=== PATIENT | female | born 1955 | race Caucasian/White ===

== ENCOUNTER → 2016-09-04 | Outpatient (REF) | payer OTHER ==
[~2016-09-04] MED LIST: /WARF5TA; COUM10TA; LOVENOX; PREMAR1.25 PO; PREMARI0.9 PO; TYLENOL #3; [UNRECOGNIZED DRUG - CODE] PO
[2016-09-04 16:01] LABS: MEAN CORPUSCULAR HGB CONC 32.6 g/dl (32.0-36.5); MEAN CORPUSCULAR VOLUME 85.9 fl (80.0-96.0); RED CELL DISTRIBUTION WIDTH 13.3 % (11.5-14.5); WHITE BLOOD COUNT 7.2 K/mm3 (4.0-10.0)
[2016-09-04 16:37] LABS: ALBUMIN 3.9 GM/DL (3.2-5.2); ALBUMIN/GLOBULIN RATIO 0.98 (1.00-1.93); BILIRUBIN,TOTAL 0.4 MG/DL (0.2-1.0); CALCIUM LEVEL 9.4 MG/DL (8.8-10.2); CREATININE FOR GFR 1.18 MG/DL (0.55-1.02); GLOMERULAR FILTRATION RATE 49.4 (>45); POTASSIUM SERUM 4.3 MEQ/L (3.5-5.1); TOTAL PROTEIN 7.9 GM/DL (6.4-8.2)
== END ==
LOC: M SFHCPLAZ 13:54
PROVIDERS: ATTEND Nurse Practitioner Adult Health
DX: Z00.00 Encounter for general adult medical examination without abnormal findings (principal); R73.02 Impaired glucose tolerance (oral); E55.9 Vitamin D deficiency, unspecified; E53.8 Deficiency of other specified B group vitamins

== ENCOUNTER → 2016-12-31 | Outpatient (CLI) | payer BC | LOC: M WUC 09:25 | PROVIDERS: ATTEND Nurse Practitioner Adult Health | DX: E03.9 Hypothyroidism, unspecified (principal) ==

== ENCOUNTER → 2017-03-14 | Outpatient (REF) | payer BC | LOC: M SFHCWAGY 15:13 | PROVIDERS: ATTEND Nurse Practitioner Family | DX: Z12.72 Encounter for screening for malignant neoplasm of vagina (principal); Z12.4 Encounter for screening for malignant neoplasm of cervix; Z12.31 Encounter for screening mammogram for malignant neoplasm of breast ==

== ENCOUNTER → 2017-03-14 | Outpatient (REF) | payer BC | LOC: M SFHCWAGY 15:13 | PROVIDERS: ATTEND Nurse Practitioner Family | DX: Z12.4 Encounter for screening for malignant neoplasm of cervix (principal); Z12.31 Encounter for screening mammogram for malignant neoplasm of breast ==

== ENCOUNTER → 2017-03-14 | Outpatient (CLI) | payer BC ==
--- NOTE | 2017-03-14 12:14 | REPMRS ---
Patient History The patient states she had a clinical breast exam in 02/2017. Patient is nulliparous. Family history of pancreatic cancer in mother and breast cancer in maternal aunt at age 50 or over. Digital Woman Screen Mammo: March 14, 2017 - Exam #: [id number] Bilateral CC and MLO view(s) were taken. Technologist: Maddie Villanueva, Technologist Prior study comparison: March 13, 2016, digital woman screen mammo performed at [facility]. February 28, 2015, digital woman screen mammo performed at [facility]. May 15, 2013, digital woman screen mammo performed at [facility] to [facility]. FINDINGS: There are scattered fibroglandular densities. There has been no change in the appearance of the mammogram from the prior studies. There is a mild amount of scattered fibroglandular density which is fairly symmetric. There is no interval development of dominant mass, architectural distortion, or clustered microcalcification suggestive of malignancy. ASSESSMENT: BI-RADS/ACR category 1 mammogram. Negative. Recommendation Routine screening mammogram in 1 year (for women over age 40). This mammogram was interpreted with the aid of an FDA-approved computer-aided dectection system. Electronically Signed By: Issa Patel MD 03/14/17 [id number]
== END ==
LOC: M WHC 10:52
PROVIDERS: ATTEND Nurse Practitioner Family
DX: Z12.31 Encounter for screening mammogram for malignant neoplasm of breast (principal)

== ENCOUNTER 2017-10-11 10:35 | Day surgery (SDC) | payer BC ==
[2017-10-11] MEDS: NS 1,000 ML IV (10:45)
[2017-10-11] MEDS ORDERED: LIDOCAINE 2% INJ 100 MG/5 ML SDV (FOR ANES.) As Ordered (11:19)
[2017-10-11] MEDS ORDERED: PROPOFOL 200 MG/20 ML VIAL As Ordered ×2 (11:20→12:15)
== END 2017-10-11 13:05 | disposition home or self-care (01) ==
LOC: M OPP 10:35
DX: R10.30 Lower abdominal pain, unspecified (principal); R19.4 Change in bowel habit; K58.0 Irritable bowel syndrome with diarrhea; K64.0 First degree hemorrhoids; E03.9 Hypothyroidism, unspecified; E78.5 Hyperlipidemia, unspecified; R73.03 Prediabetes; D64.9 Anemia, unspecified; Z86.718 Personal history of other venous thrombosis and embolism; Z88.8 Allergy status to other drugs, medicaments and biological substances; Z91.011 Allergy to milk products; Z79.899 Other long term (current) drug therapy; Z80.8 Family history of malignant neoplasm of other organs or systems; Z80.3 Family history of malignant neoplasm of breast
CPT/HCPCS: 45380

== ENCOUNTER → 2018-02-05 | Outpatient (REF) | payer BC ==
[2018-02-05 12:02] LABS: ESTIMATED AVERAGE GLUCOSE 126 MG/DL (60-110)
== END ==
LOC: M SFHCPLAZ 10:32
DX: R73.02 Impaired glucose tolerance (oral) (principal); I10 Essential (primary) hypertension
CPT/HCPCS: 84443

== ENCOUNTER → 2018-10-20 | Outpatient (REF) | payer BC ==
[~2018-10-20] MED LIST changes: -/WARF5TA; +CHLO125TA PO; +COUM1TAB17; +LEVO88TA3 PO; +PROBCAP14 PO; +VITA200015 PO
[2018-10-20 17:45] LABS: HEMATOCRIT 39.6 % (36.0-47.0); MEAN CORPUSCULAR HEMOGLOBIN 24.1 pg (27.0-33.0); MEAN CORPUSCULAR HGB CONC 30.3 g/dl (32.0-36.5); MEAN CORPUSCULAR VOLUME 79.7 fl (80.0-96.0); PLATELET COUNT, AUTOMATED 266 10^3/uL (150-450); RED BLOOD COUNT 4.97 10^6/uL (4.00-5.40); WHITE BLOOD COUNT 5.9 10^3/uL (4.0-10.0)
[2018-10-20 17:49] LABS: CHOLESTEROL RISK RATIO 2.831 (<5); THYROID STIMULATING HORMONE 0.367 uIU/ML (0.358-3.740)
[2018-10-20 17:50] LABS: TOTAL 25(OH) VITAMIN D 31.5 NG/ML (30.0-100.0)
[2018-10-20 19:33] LABS: HEMOGLOBIN A1c 6.5 %
== END ==
LOC: M SFHCPLAZ 15:49
PROVIDERS: ATTEND Nurse Practitioner Adult Health
DX: R73.02 Impaired glucose tolerance (oral) (principal); E55.9 Vitamin D deficiency, unspecified; E03.9 Hypothyroidism, unspecified; E78.00 Pure hypercholesterolemia, unspecified; D64.9 Anemia, unspecified

== ENCOUNTER → 2018-11-13 | Outpatient (CLI) | payer BC ==
--- NOTE | 2018-11-13 14:22 | REP ---
BILATERAL SCREENING DIGITAL MAMMOGRAM WITH 3D TOMOSYNTHESIS: There are no palpable abnormalities or other breast complaints. The the patient states she had a clinical breast examination 12/02 18. The the patient states she performs self-breast examinations 12 times per year. The Tyrer-Cuzick Score is: 9.4% . Comparison is 05/15/2013 and 03/13/2016. There are scattered areas of fibroglandular density. There is no dominant mass, micro calcific cluster or architectural distortion that would indicate malignancy. There are no additional findings on 3D tomosynthesiss. There is no change from the prior study. Impression: BIRADS/ACR category 1 mammogram. Negative. Recommendation: Routine annual screening mammography. This mammogram was interpreted with the aid of a FDA approved computer-aided detection system. A. Negative mammogram reports should not delay biopsy if a dominant or clinically suspicious mass is present. B. Not all breast cancers are identified by mammography or tomosynthesis. C. Adenosis and dense breasts may obscure an underlying neoplasm. Patient letter M1. Electronically Signed by Jed Odonnell MD 11/13/2018 02:13 P
== END ==
LOC: M WHC 13:08
PROVIDERS: ATTEND Nurse Practitioner Adult Health
DX: Z12.31 Encounter for screening mammogram for malignant neoplasm of breast (principal)

== ENCOUNTER → 2019-03-05 | Outpatient (CLI) | payer MEDICARE ==
[2019-03-05 16:48] LABS: HEMATOCRIT 38.4 % (36.0-47.0); MEAN CORPUSCULAR HEMOGLOBIN 22.8 pg (27.0-33.0); MEAN CORPUSCULAR HGB CONC 28.6 g/dl (32.0-36.5); MEAN CORPUSCULAR VOLUME 79.5 fl (80.0-96.0); PLATELET COUNT, AUTOMATED 254 10^3/uL (150-450); RED BLOOD COUNT 4.83 10^6/uL (4.00-5.40); WHITE BLOOD COUNT 4.2 10^3/uL (4.0-10.0)
[2019-03-05 16:57] LABS: ALBUMIN 3.4 GM/DL (3.2-5.2); BILIRUBIN,TOTAL 0.5 MG/DL (0.2-1.0); CALCIUM LEVEL 8.9 MG/DL (8.8-10.2); CHOLESTEROL RISK RATIO 3.25 (<5); CREATININE FOR GFR 1.06 MG/DL (0.55-1.30); GLOMERULAR FILTRATION RATE 55.4 (>45); POTASSIUM SERUM 4.8 MEQ/L (3.5-5.1); THYROID STIMULATING HORMONE 2.24 uIU/ML (0.358-3.740); TOTAL PROTEIN 6.9 GM/DL (6.4-8.2)
[2019-03-05 17:16] LABS: HEMOGLOBIN A1c 6.2 %
== END ==
LOC: M WUC 12:01
PROVIDERS: ATTEND Nurse Practitioner Adult Health
DX: E74.39 Other disorders of intestinal carbohydrate absorption (principal); E78.2 Mixed hyperlipidemia; D64.9 Anemia, unspecified; E03.9 Hypothyroidism, unspecified

== ENCOUNTER → 2019-09-14 | Outpatient (REF) | payer OTHER ==
[2019-09-14 13:25] LABS: HEMOGLOBIN 13.4 g/dl (12.0-15.5); MEAN CORPUSCULAR HEMOGLOBIN 26.4 pg (27.0-33.0); MEAN CORPUSCULAR HGB CONC 31.2 g/dl (32.0-36.5); MEAN CORPUSCULAR VOLUME 84.8 fl (80.0-96.0); PLATELET COUNT, AUTOMATED 277 10^3/uL (150-450); RED BLOOD COUNT 5.07 10^6/uL (4.00-5.40); WHITE BLOOD COUNT 5.6 10^3/uL (4.0-10.0)
[2019-09-14 13:42] LABS: HEMOGLOBIN A1c 6.3 %
[2019-09-14 14:03] LABS: ALBUMIN 3.6 GM/DL (3.2-5.2); ALT/SGPT 23 U/L (12-78); BILIRUBIN,TOTAL 0.4 MG/DL (0.2-1.0); BLOOD UREA NITROGEN 21 MG/DL (7-18); CALCIUM LEVEL 9.3 MG/DL (8.8-10.2); CARBON DIOXIDE LEVEL 30 MEQ/L (21-32); CHLORIDE LEVEL 104 MEQ/L (98-107); CHOLESTEROL LEVEL 256 MG/DL (<200); CHOLESTEROL RISK RATIO 3.764 (<5); CREATININE FOR GFR 0.94 MG/DL (0.55-1.30); FOLATE 16.9 NG/ML; FREE T4 1.25 NG/DL (0.76-1.46); GLOMERULAR FILTRATION RATE > 60.0 (>45); GLUCOSE, FASTING 113 MG/DL (70-100); HDL CHOLESTEROL 68 MG/DL (>40); LDL CHOLESTEROL 163 MG/DL (<100); NON-HDL-C 188 MG/DL; POTASSIUM SERUM 4.7 MEQ/L (3.5-5.1); SODIUM LEVEL 140 MEQ/L (136-145); THYROID STIMULATING HORMONE 0.494 uIU/ML (0.358-3.740); TOTAL 25(OH) VITAMIN D 38.7 NG/ML (30.0-100.0); TOTAL PROTEIN 7.2 GM/DL (6.4-8.2); TRIGLYCERIDES LEVEL 127 MG/DL (<150); VITAMIN B12 LEVEL 328 PG/ML
== END ==
LOC: M SFHCPLAZ 10:12
PROVIDERS: ATTEND Physician Assistant
DX: E03.9 Hypothyroidism, unspecified (principal); I10 Essential (primary) hypertension; E55.9 Vitamin D deficiency, unspecified; E78.2 Mixed hyperlipidemia; D64.9 Anemia, unspecified; E53.8 Deficiency of other specified B group vitamins; E74.39 Other disorders of intestinal carbohydrate absorption; Z79.899 Other long term (current) drug therapy

== ENCOUNTER → 2020-01-13 | Outpatient (REF) | payer MEDICARE, OTHER ==
[2020-01-13 15:41] LABS: HEMOGLOBIN A1c 5.9 %
[2020-01-13 15:58] LABS: CHOLESTEROL RISK RATIO 3.902 (<5); THYROID STIMULATING HORMONE 0.209 uIU/ML (0.358-3.740)
== END ==
LOC: M SFHCPLAZ 13:45
PROVIDERS: ATTEND Nurse Practitioner Adult Health
DX: R73.02 Impaired glucose tolerance (oral) (principal); E03.9 Hypothyroidism, unspecified; E78.00 Pure hypercholesterolemia, unspecified
CPT/HCPCS: 36415; 80061; 83036; 84443; G0463

== ENCOUNTER → 2020-02-10 | Outpatient (CLI) | payer MEDICARE, OTHER ==
--- NOTE | 2020-02-10 16:26 | REPMRS ---
Patient History The patient states she had a clinical breast exam in 01/2020. Patient is nulliparous. Family history of breast cancer at age 50 or over in maternal aunt, pancreatic cancer at age 50 or over in mother. No Hormone Replacement Therapy 3D TOMOSYNTHESIS WAS PERFORMED. [facility] for [facility] Volpara breast density b. Digital Woman Screen Mammo: February 10, 2020 - Exam #: [id number] Bilateral CC and MLO view(s) were taken. Technologist: Maddie Villanueva, Technologist Prior study comparison: November 13, 2018, bilateral digital woman screen mammo performed at [facility]. March 14, 2017, digital woman screen mammo performed at [facility]. FINDINGS: There are scattered fibroglandular densities. There has been no change in the appearance of the mammogram from the prior studies. There is a mild amount of residual fibroglandular tissue which is fairly symmetric. There is no interval development of dominant mass, architectural distortion, or clustered microcalcification suggestive of malignancy. Assessment: BI-RADS/ACR category 1 mammogram. Negative Mammogram. Recommendation Routine screening mammogram in 1 year (for women over age 40). This mammogram was interpreted with the aid of an FDA-approved computer-aided dectection system. Electronically Signed By: Jed Monsivais MD 02/10/20 [id number]
== END ==
LOC: M WHC 14:58
PROVIDERS: ATTEND Nurse Practitioner Family
DX: Z12.31 Encounter for screening mammogram for malignant neoplasm of breast (principal)
CPT/HCPCS: 77063; 77067; G0463

== ENCOUNTER → 2020-02-18 | Outpatient (CLI) | payer MEDICARE, OTHER ==
--- NOTE | 2020-02-18 16:17 | DEXA ---
INDICATION: Z78.0 ASYMPTOMATIC MENOPAUSAL STATE. COMPARISON: 12/05/2011 and 05/14/2005. TECHNIQUE: Bone density was measured using dual-energy x-ray absorptiometry (DEXA). FINDINGS: AP SPINE L1-L4 BMD 0.970 g/cm2 Young Adult T-Score -1.7 Age Matched Z-Score -0.1. LT FEMUR, TOTAL BMD 0.807 g/cm2 Young Adult T-Score -1.6 Age Matched Z-Score -0.3. LT NECK BMD 0.719 g/cm2 Young Adult T-Score -2.3 Age Matched Z-Score -0.8. RT FEMUR, TOTAL BMD 0.775 g/cm2 Young Adult T-Score -1.8 Age Matched Z-Score -0.6. RT NECK BMD 0.862 g/cm2 Young Adult T-Score -1.3 Age Matched Z-Score 0.2. IMPRESSION: There is low bone density of the spine. There is low bone density of the left hip. There is low bone density of the right hip. The density of the spine has decreased 13.1% since the initial exam on 05/14/2005. The density of the spine decreased 7.2% since most recent exam on 12/05/2011. The density of the left hip has decreased 18.1% since initial exam on 05/14/2005. The density of the left hip has decreased 9.3% since most recent exam on 12/05/2011. The density of the right hip has decreased 17.6% since the initial exam on 05/14/2005. The density of the right hip has decreased 8.8% since the most recent exam on 12/05/2011. FOLLOW-UP: Recommendation for the next bone density exam: 2 years. <Electronically signed by Jed Monsivais > 02/18/20 [id number]
== END ==
LOC: M WHC 15:01
PROVIDERS: ATTEND Nurse Practitioner Family
DX: M85.9 Disorder of bone density and structure, unspecified (principal); Z78.0 Asymptomatic menopausal state

== ENCOUNTER → 2020-11-21 | Outpatient (CLI) | payer MEDICARE, OTHER ==
[2020-11-21 17:24] LABS: HEMATOCRIT 40.4 % (36.0-47.0); HEMOGLOBIN 12.8 g/dl (12.0-15.5); MEAN CORPUSCULAR HEMOGLOBIN 28.3 pg (27.0-33.0); MEAN CORPUSCULAR HGB CONC 31.7 g/dl (32.0-36.5); MEAN CORPUSCULAR VOLUME 89.4 fl (80.0-96.0); PLATELET COUNT, AUTOMATED 216 10^3/uL (150-450); RED BLOOD COUNT 4.52 10^6/uL (4.00-5.40); WHITE BLOOD COUNT 5.4 10^3/uL (4.0-10.0)
[2020-11-21 17:40] LABS: ALBUMIN 3.5 GM/DL (3.2-5.2); ALT/SGPT 24 U/L (12-78); BILIRUBIN,TOTAL 0.5 MG/DL (0.2-1.0); BLOOD UREA NITROGEN 18 MG/DL (7-18); CALCIUM LEVEL 8.9 MG/DL (8.8-10.2); CARBON DIOXIDE LEVEL 30 MEQ/L (21-32); CHLORIDE LEVEL 106 MEQ/L (98-107); FREE T4 1.15 NG/DL (0.76-1.46); GLOMERULAR FILTRATION RATE > 60.0 (>45); GLUCOSE, FASTING 85 MG/DL (70-100); IRON (FE) 38 UG/DL (50-170); PERCENT SATURATION 10.4 % (13.2-45.0); POTASSIUM SERUM 4.2 MEQ/L (3.5-5.1); SODIUM LEVEL 140 MEQ/L (136-145); TOTAL IRON BINDING CAPACITY 366 UG/DL (250-450); TOTAL PROTEIN 6.7 GM/DL (6.4-8.2)
[2020-11-21 17:42] LABS: TOTAL 25(OH) VITAMIN D 31.3 NG/ML (30.0-100.0); VITAMIN B12 LEVEL 339 PG/ML (247-911)
[2020-11-21 17:43] LABS: HEMOGLOBIN A1c 5.7 %
== END ==
LOC: M PLALAB 14:26
PROVIDERS: ATTEND Nurse Practitioner Adult Health
DX: E53.8 Deficiency of other specified B group vitamins (principal); D64.9 Anemia, unspecified; I10 Essential (primary) hypertension; R73.02 Impaired glucose tolerance (oral); E03.9 Hypothyroidism, unspecified; E55.9 Vitamin D deficiency, unspecified

== ENCOUNTER → 2021-09-13 | Outpatient (CLI) | payer MEDICARE, OTHER | LOC: M WHC 09:33 | PROVIDERS: ATTEND Advanced Practice Midwife | DX: R92.8 Other abnormal and inconclusive findings on diagnostic imaging of breast (principal) ==

== ENCOUNTER → 2021-12-26 | Outpatient (CLI) | payer MEDICARE, OTHER ==
[2021-12-26 18:02] LABS: HEMATOCRIT 37.7 % (36.0-47.0); HEMOGLOBIN 11.4 g/dl (12.0-15.5); MEAN CORPUSCULAR HEMOGLOBIN 24.9 pg (27.0-33.0); MEAN CORPUSCULAR HGB CONC 30.2 g/dl (32.0-36.5); MEAN CORPUSCULAR VOLUME 82.3 fl (80.0-96.0); PLATELET COUNT, AUTOMATED 278 10^3/uL (150-450); RED BLOOD COUNT 4.58 10^6/uL (4.00-5.40); WHITE BLOOD COUNT 4.8 10^3/uL (4.0-10.0)
[2021-12-26 19:29] LABS: HEMOGLOBIN A1c 6.1 %
[2021-12-26 21:19] LABS: ALBUMIN 3.5 GM/DL (3.2-5.2); BILIRUBIN,TOTAL 0.4 MG/DL (0.2-1.0); CALCIUM LEVEL 9.5 MG/DL (8.8-10.2); CREATININE FOR GFR 1.16 MG/DL (0.55-1.30); GLOMERULAR FILTRATION RATE 49.5 (>45); PERCENT SATURATION 9.3 % (13.2-45.0); POTASSIUM SERUM 4.8 MEQ/L (3.5-5.1); THYROID STIMULATING HORMONE 1.47 uIU/ML (0.358-3.740); TOTAL 25(OH) VITAMIN D 27.3 NG/ML (30.0-100.0)
[2021-12-28 15:15] LABS: CHOLESTEROL RISK RATIO 3.324 (<5)
== END ==
LOC: M WUC 11:11
PROVIDERS: ATTEND Nurse Practitioner Adult Health
DX: R73.02 Impaired glucose tolerance (oral) (principal); E55.9 Vitamin D deficiency, unspecified; I10 Essential (primary) hypertension; D64.9 Anemia, unspecified; E53.8 Deficiency of other specified B group vitamins; E03.9 Hypothyroidism, unspecified

== ENCOUNTER → 2022-02-19 | Outpatient (CLI) | payer MEDICARE, OTHER | LOC: M WHC 09-22 09:24 | PROVIDERS: ATTEND Advanced Practice Midwife | DX: Z13.820 Encounter for screening for osteoporosis (principal); M85.89 Other specified disorders of bone density and structure, multiple sites ==

== ENCOUNTER → 2022-12-04 | Outpatient (CLI) | payer MEDICARE, OTHER ==
[2022-12-04 13:41] LABS: HEMATOCRIT 45.7 % (36.0-47.0); HEMOGLOBIN 14.2 g/dl (12.0-15.5); MEAN CORPUSCULAR HEMOGLOBIN 26.6 pg (27.0-33.0); MEAN CORPUSCULAR HGB CONC 31.1 g/dl (32.0-36.5); MEAN CORPUSCULAR VOLUME 85.6 fl (80.0-96.0); PLATELET COUNT, AUTOMATED 246 10^3/uL (150-450); RED BLOOD COUNT 5.34 10^6/uL (4.00-5.40); WHITE BLOOD COUNT 4.8 10^3/uL (4.0-10.0)
[2022-12-04 14:04] LABS: ALBUMIN 3.6 G/DL (3.2-5.2); BILIRUBIN,TOTAL 0.5 MG/DL (0.3-1.2); CALCIUM LEVEL 9.7 MG/DL (8.3-10.6); CHOLESTEROL RISK RATIO 3.51 (<5); GLOMERULAR FILTRATION RATE 58.7 (>45); HDL CHOLESTEROL 79.2 MG/DL (>40); LDL CHOLESTEROL 180.8 MG/DL (<100); NON-HDL-C 198.8 MG/DL; PERCENT SATURATION 18.5 % (13.2-45.0); POTASSIUM SERUM 4.7 MMOL/L (3.5-5.1)
[2022-12-04 14:08] LABS: FERRITIN 15.1 NG/ML (7.3-270.7); HEMOGLOBIN A1c 5.6 % (4.0-6.0); TOTAL 25(OH) VITAMIN D 21.6 NG/ML (20.0-100.0)
[2022-12-04 14:09] LABS: FOLATE 14.46 NG/ML (>5.4); THYROID STIMULATING HORMONE 2.636 uIU/ML (0.55-4.78)
== END ==
LOC: M PLALAB 10:54
PROVIDERS: ATTEND Nurse Practitioner Adult Health
DX: I10 Essential (primary) hypertension (principal); D64.9 Anemia, unspecified; R73.02 Impaired glucose tolerance (oral); E53.8 Deficiency of other specified B group vitamins; E03.9 Hypothyroidism, unspecified

== ENCOUNTER → 2022-12-11 | Outpatient (CLI) | payer MEDICARE, OTHER | LOC: M WHC 09:21 | PROVIDERS: ATTEND Nurse Practitioner Family | DX: Z12.31 Encounter for screening mammogram for malignant neoplasm of breast (principal) ==

== ENCOUNTER → 2023-01-23 | Outpatient (CLI) | payer MEDICARE, OTHER | LOC: M SOG 09:09 | PROVIDERS: ATTEND Orthopaedic Surgery | DX: M25.511 Pain in right shoulder (principal); Z53.9 Procedure and treatment not carried out, unspecified reason ==

== ENCOUNTER → 2023-02-18 | Outpatient (CLI) | payer MEDICARE, OTHER | LOC: M SOG 07:54 | PROVIDERS: ATTEND Orthopaedic Surgery | DX: M25.511 Pain in right shoulder (principal) ==

== ENCOUNTER → 2023-09-20 | Outpatient (CLI) | payer MEDICARE, OTHER ==
[2023-09-20 14:26] LABS: C REACTIVE PROTEIN QUANTITATIV < 0.40 MG/DL (<1.0)
[2023-09-20 14:27] LABS: ALBUMIN 3.4 G/DL (3.2-5.2); ALKALINE PHOSPHATASE 67 U/L (46-116); ALT/SGPT 25 U/L (7.0-40); AST/SGOT 18 U/L (<34); BILIRUBIN,DIRECT 0.1 MG/DL (<0.4); BILIRUBIN,TOTAL 0.5 MG/DL (0.3-1.2); TOTAL PROTEIN 6.7 G/DL (5.7-8.2)
== END ==
LOC: M WUC 09:41
PROVIDERS: ATTEND Internal Medicine Cardiovascular Disease
DX: R79.89 Other specified abnormal findings of blood chemistry (principal); E78.5 Hyperlipidemia, unspecified

== ENCOUNTER → 2023-12-18 | Outpatient (CLI) | payer MEDICARE, OTHER ==
[2023-12-18 15:20] LABS: HEMATOCRIT 43.3 % (36.0-47.0); HEMOGLOBIN 13.4 g/dl (12.0-15.5); MEAN CORPUSCULAR HEMOGLOBIN 25.7 pg (27.0-33.0); MEAN CORPUSCULAR HGB CONC 30.9 g/dl (32.0-36.5); MEAN CORPUSCULAR VOLUME 83.1 fl (80.0-96.0); PLATELET COUNT, AUTOMATED 267 10^3/uL (150-450); RED BLOOD COUNT 5.21 10^6/uL (4.00-5.40); WHITE BLOOD COUNT 4.6 10^3/uL (4.0-10.0)
[2023-12-18 15:32] LABS: HEMOGLOBIN A1c 5.9 % (4.0-6.0)
[2023-12-18 15:48] LABS: PERCENT SATURATION 12.4 % (13.2-45.0); THYROID STIMULATING HORMONE 2.383 uIU/ML (0.55-4.78); TOTAL 25(OH) VITAMIN D 26.1 NG/ML (20.0-100.0)
[2023-12-18 15:49] LABS: ALBUMIN 3.6 G/DL (3.2-5.2); BILIRUBIN,TOTAL 0.6 MG/DL (0.3-1.2); CALCIUM LEVEL 10.1 MG/DL (8.3-10.6); CHOLESTEROL RISK RATIO 3.36 (<5); CREATININE FOR GFR 0.99 MG/DL (0.55-1.30); FERRITIN 8.2 NG/ML (7.3-270.7); HDL CHOLESTEROL 83.7 MG/DL (>40); LDL CHOLESTEROL 179.9 MG/DL (<100); NON-HDL-C 198.3 MG/DL; POTASSIUM SERUM 4.9 MMOL/L (3.5-5.1); TOTAL PROTEIN 7.3 G/DL (5.7-8.2)
[2023-12-18 15:50] LABS: FOLATE 14.1 NG/ML (>5.4)
[2023-12-18 15:51] LABS: FREE T4 1.38 NG/DL (0.89-1.76)
== END ==
LOC: M PLALAB 12:40
PROVIDERS: ATTEND Nurse Practitioner Adult Health
DX: E78.2 Mixed hyperlipidemia (principal); D64.9 Anemia, unspecified; E03.9 Hypothyroidism, unspecified; R73.02 Impaired glucose tolerance (oral); E53.8 Deficiency of other specified B group vitamins; E55.9 Vitamin D deficiency, unspecified; Z80.0 Family history of malignant neoplasm of digestive organs

== ENCOUNTER → 2023-12-18 | Outpatient (CLI) | payer MEDICARE, OTHER | LOC: M WHC 12:56 | PROVIDERS: ATTEND Nurse Practitioner Family | DX: Z12.31 Encounter for screening mammogram for malignant neoplasm of breast (principal) ==

== ENCOUNTER → 2024-12-22 | Outpatient (CLI) | payer MEDICARE, OTHER ==
[2024-12-22 14:11] LABS: PLATELET COUNT, AUTOMATED 245 10^3/uL (150-450)
[2024-12-22 14:14] LABS: FREE T4 1.29 NG/DL (0.89-1.76)
[2024-12-22 14:18] LABS: TOTAL 25(OH) VITAMIN D 30.9 NG/ML (20.0-100.0); VITAMIN B12 LEVEL 463.0 PG/ML (211-911)
[2024-12-22 14:21] LABS: ALT/SGPT 22.0 U/L (7.0-40); AST/SGOT 19.0 U/L (<34); CALCIUM LEVEL 9.5 MG/DL (8.3-10.6); CARBON DIOXIDE LEVEL 31.0 MMOL/L (20-31); CHLORIDE LEVEL 103.0 MMOL/L (98-107); CHOLESTEROL LEVEL 292.0 MG/DL (<200); CHOLESTEROL RISK RATIO 3.7 (<5); CREATININE FOR GFR 0.98 MG/DL (0.55-1.30); GLOMERULAR FILTRATION RATE 61.7 (>39); LDL CHOLESTEROL 181.4 MG/DL (<100); NON-HDL-C 213.2 MG/DL; POTASSIUM SERUM 4.1 MMOL/L (3.5-5.1); SODIUM LEVEL 143.0 MMOL/L (136-145); TRIGLYCERIDES LEVEL 159.0 MG/DL (<150)
[2024-12-22 14:40] LABS: ESTIMATED AVERAGE GLUCOSE 143.0 MG/DL (60-110)
== END ==
LOC: M PLALAB 10:56
PROVIDERS: ATTEND Nurse Practitioner Adult Health
DX: D64.9 Anemia, unspecified (principal); E78.2 Mixed hyperlipidemia; E03.9 Hypothyroidism, unspecified; R73.02 Impaired glucose tolerance (oral); Z80.0 Family history of malignant neoplasm of digestive organs; E55.9 Vitamin D deficiency, unspecified; E53.8 Deficiency of other specified B group vitamins

== ENCOUNTER → 2025-01-06 | Outpatient (REF) | payer MEDICARE, OTHER ==
[2025-01-08 14:37] LABS: HPV APTIMA Not Detected (Not Detected)
== END ==
LOC: M PLALAB 13:33
PROVIDERS: ATTEND Physician Assistant
DX: Z01.419 Encounter for gynecological examination (general) (routine) without abnormal findings (principal); Z90.710 Acquired absence of both cervix and uterus
CPT/HCPCS: 87624; G0123

== ENCOUNTER → 2025-01-06 | Outpatient (CLI) | payer MEDICARE, OTHER | LOC: M WHC 12:53 | PROVIDERS: ATTEND Physician Assistant | DX: Z12.31 Encounter for screening mammogram for malignant neoplasm of breast (principal) ==